=== PATIENT | female | born 1965 | race Caucasian/White ===

== ENCOUNTER 2018-01-26 15:17 | Observation (INO) ==
--- NOTE | 2018-01-26 15:41 | ED ---
HPI General Chief complaint: Medical Clearance Stated complaint: Cardiac Time Seen by Provider: 01/26/18 15:34 Source: patient, EMS and other Mode of arrival: EMS Limitations: no limitations History of Present Illness HPI narrative: Patient is a 53-year-old female, past medical history significant for reflux, breast cancer, who presents to the emergency department after having a lumpectomy. Patient states that she has been feeling well and took her Zantac prior to the procedure today. She slept through most of this procedure and is complaining of pain near the lumpectomy site but otherwise feels well. Per EMS report during the patient's procedure she had 2 5-second strips of asystole on the monitor that self aborted. These rhythm strips were not brought with the patient. The only medication she received there per report was morphine. Onset (ago): unknown Radiation: non-radiation Relieving factors: none Exacerbating factors: none Treatments prior to arrival: Reports none Related Data Home Medications Medication Instructions Recorded Confirmed ranitidine HCl [Zantac Maximum 150 mg PO DAILY 01/26/18 01/26/18 Strength] Allergies Allergy/AdvReac Type Severity Reaction Status Date / Time No Known Allergies Allergy Unverified 01/26/18 15:34 Review of Systems ROS: all other systems reviewed are negative [facility] Medical History Medical History GERD (gastroesophageal reflux disease) (Acute) Social History Social History Second Hand Smoke Exposure: No Smoking Status: Former smoker Tobacco Type: Cigarettes How Often Do You Have a Drink Containing Alcohol: Monthly or less Recent Travel in [facility] within the Last 8 Weeks: No Recent Out of Country Travel within the Last 8 Weeks: No Immunization History Tetanus Immunization: Unsure Exam Narrative Exam Narrative: GENERAL: Well-appearing female in no acute distress SKIN: Focused skin assessment warm/dry. No rashes. HEAD: Atraumatic. Normocephalic. EYES: Pupils equal and round. No scleral icterus. No injection or drainage. ENT: No nasal bleeding or discharge. Mucous membranes pink and moist. NECK: Trachea midline. No JVD. CARDIOVASCULAR: Regular rate and rhythm. No murmur appreciated. Intact and equal peripheral pulses. RESPIRATORY: No accessory muscle use. Clear to auscultation. Breath sounds equal bilaterally. GASTROINTESTINAL: Abdomen soft, non-tender, nondistended. Hepatic and splenic margins not palpable. MUSCULOSKELETAL: No obvious deformities. No clubbing. No cyanosis. No edema. NEUROLOGICAL: Awake and alert. No obvious cranial nerve deficits. Motor grossly within normal limits. Normal sensation. No ataxia. Normal speech. PSYCHIATRIC: Appropriate mood and affect; insight and judgment normal. Course Initial Documented Vital Signs Temperature 98.9 F 01/26/18 15: Pulse Rate 82 01/26/18 15: Respiratory Rate 18 01/26/18 15: Blood Pressure 109/66 01/26/18 15: Pulse Oximetry 97 01/26/18 15: Last Documented Vital Signs Temperature 98.9 F 01/26/18: Pulse Rate 62 01/26/18 19:00 Respiratory Rate 18 01/26/18 19: Blood Pressure 110/62 01/26/18 19:00 Pulse Oximetry 97 01/26/18 19:00 Medical Decision Making MDM Narrative Medical decision making narrative: Patient is a 53-year-old female who presents with complaint of dysrhythmia while she was undergoing a sedation. EKG shows NSR, no ST elevation or depression, and no arrhythmias. No significant T-wave inversions. Here is sinus rhythm and labs are unremarkable. She has not had any asystole on the monitor while in the emergency department. She has been admitted to Dr. Preston, hospitalist on-call, for further evaluation and management. Medical Screen Exam Complete: Yes Emergency Medical Condition: Yes Differential Diagnosis Differential Diagnosis: Differential diagnosis includes but is not limited to electrolyte abnormality, dysrhythmia, monitor error. Medical Records Medical records reviewed: Yes I reviewed the patient's medical records. Lab Data Result diagrams: 01/26/18 15:38 01/26/18 15:38 Lab Results 01/26/18 01/26/18 Range/Units 15:38 15:38 WBC 10.8 (4.0-11.0) th/mm3 RBC 4.52 (4.00-5.30) mil/mm3 Hgb 13.3 (11.6-15.3) gm/dL Hct 39.4 (35.0-46.0) % MCV 87.2 (80.0-100.0) fL MCH 29.3 (27.0-34.0) pg MCHC 33.6 (32.0-36.0) % RDW 15.2 (11.6-17.2) % Plt Count 211 (150-450) th/mm3 MPV 8.0 (7.0-11.0) fL Sodium 139 (136-145) meq/L Potassium 4.0 (3.5-5.1) meq/L Chloride 108 H (98-107) meq/L Carbon Dioxide 22.6 (21.0-32.0) meq/L Anion Gap 8 (5-15) meq/L BUN 10 (7-18) mg/dL Creatinine 0.90 (0.50-1.00) mg/dL Estimated GFR 65 L (>89) mL/min Random Glucose 91 (74-106) mg/dL Calcium 8.2 L (8.5-10.1) mg/dL Total Bilirubin 0.5 (0.2-1.0) mg/dL AST 25 (15-37) U/L ALT 23 (10-53) U/L Alkaline Phosphatase 74 (45-117) U/L Troponin I Less than 0.02 L (0.02-0.05) ng/mL Total Protein 7.6 (6.4-8.2) g/dL Albumin 3.4 (3.4-5.0) g/dL TSH 5.240 H (0.358-3.740) uIU/mL Imaging Data Radiologist's impression: Chest X-Ray 01/26/18 15:34 CONCLUSION: No acute cardiopulmonary disease. There are gas bubbles in the right chest wall and breast area most likely postsurgical changes. ECG Data EKG Prior to Arrival: No Attestation: I personally reviewed and interpreted this ECG as follows: Discharge Plan Discharge Disposition Patient Disposition: 30 Still Patient Discharge Condition Condition: Stable Discharge Details Diagnosis: Cardiac dysrhythmia Physicians Team ED Provider: Bhumika Sinclair Primary Care Provider: Ursula Holt Rxs /Orders / Referrals /Forms Prescriptions: No Action ranitidine HCl [Zantac Maximum Strength] 150 mg Tablet 150 mg PO DAILY RF: 0 Discharge Interventions Interventions: Vital Signs Last Done: 01/26/18 19:00 Status ED Status: With Doctor
[2018-01-26] MEDS ORDERED: Sod Chloride 0.9% Inj 1,000 ML IV.SIG SCH (15:45)
[2018-01-26 16:27] LABS: Hematocrit 39.4 % (35.0-46.0); Hemoglobin 13.3 gm/dL (11.6-15.3); Mean Corpuscular HGB Conc 33.6 % (32.0-36.0); Mean Corpuscular Hemoglobin 29.3 pg (27.0-34.0); Mean Corpuscular Volume 87.2 fL (80.0-100.0); Platelet Count 211 th/mm3 (150-450); Red Blood Count 4.52 mil/mm3 (4.00-5.30); Red Cell Distribution Width 15.2 % (11.6-17.2); White Blood Count 10.8 th/mm3 (4.0-11.0)
--- NOTE | 2018-01-26 16:41 | XR ---
EXAM DATE: 01/26/2018 3:34 PM EDT AGE/SEX: 53 years / Female INDICATIONS: . Asystole twice during lumpectomy today. CLINICAL DATA: This is the patient's initial encounter. Patient reports that signs and symptoms have been present for 1 day and indicates a pain score of 0/10. MEDICAL/SURGICAL HISTORY: Carcinoma, breast. . Lumpectomy, right. COMPARISON: . FINDINGS: The lungs are clear without infiltrate, nodule, or mass. There is no appreciable pleural effusion for technique. Heart and mediastinum are unremarkable. There are gas bubbles in the patien t's right breast area partially dissecting into the right upper chest most likely postsurgical change s. No definite pneumothorax is seen for technique. CONCLUSION: No acute cardiopulmonary disease. There are gas bubbles in the right chest wall and love st area most likely postsurgical changes. Electronically signed by: Tj Holm MD 01/26/2018 4:40 PM EDT
[2018-01-26 16:50] LABS: Albumin 3.4 g/dL (3.4-5.0); Anion Gap 8 meq/L (5-15); Aspartate Aminotransferase 25 U/L (15-37); Blood Urea Nitrogen 10 mg/dL (7-18); Calcium 8.2 mg/dL (8.5-10.1); Carbon Dioxide 22.6 meq/L (21.0-32.0); Chloride 108 meq/L (98-107); Glomerular Filtration Rate 65 mL/min (>89); Glucose,Random 91 mg/dL (74-106); Sodium 139 meq/L (136-145)
[2018-01-26 16:59] LABS: Alanine Aminotransferase 23 U/L (10-53); Alkaline Phosphatase 74 U/L (45-117); Total Protein 7.6 g/dL (6.4-8.2)
[2018-01-26] MEDS ORDERED: Bisacodyl 10 MG Supp RECTAL PRN (19:05)
--- NOTE | 2018-01-26 19:13 | P.HP ---
History of Present Illness Service: CP hospitalist Primary Care Physician: BENNIE Bucio Chief Complaint: sent by Dr. Ledesma asystole History of Present Illness: HPI narrative: Patient is a 53-year-old female, past medical history significant for reflux,RT breast cancer, who presents to the emergency department after having a lumpectomy. Patient states that she has been feeling well and took her Zantac prior to the procedure today. She slept through most of this procedure and is complaining of pain near the lumpectomy site but otherwise feels well. Per EMS report during the patient's procedure she had 2 5 -second strips of asystole on the monitor that self aborted. These rhythm strips were not brought with the patient. The only medication she received there per report was morphine. OR report 2 episodes bradycardia with 5 second asystole. Will admit to observation. 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 - Medical History Medical History: Medical History (Last Reviewed 01/26/18 @ 19:10 by Canelo Gonzalez MD) GERD (gastroesophageal reflux disease) - Tobacco History Second Hand Smoke Exposure: No Tobacco Use In Past 30 Days: No Smoking Status: Former smoker Tobacco Type: Cigarettes - Alcohol History How Often Do You Have a Drink Containing Alcohol: Monthly or less - Travel History Recent Travel in the [place] Within the Last 8 Weeks: No Recent Travel Out of the Country Within the Last 8 Weeks: No - Immunization History Tetanus Immunization: Unsure Medications and Allergies Active Medications: Active Medications Sodium Chloride (Ns Inj) 1,000 mls @ 0 mls/hr IV.SIG BOLUS GLORY Non-Formulary Medication (Ranitidine Hcl [Zantac Maximum Strength]) 150 mg PO DAILY GLORY Sodium Chloride (Ns Flush) 2 ml IV.FLUSH PRN PRN PRN Reason: FLUSH AFTER USING IV ACCESS Allergies Allergy/AdvReac Type Severity Reaction Status Date / Time No Known Allergies Allergy Unverified 01/26/18 15:34 Home Medications Medication Instructions Recorded Confirmed Type ranitidine HCl [Zantac Maximum 150 mg PO DAILY 01/26/18 01/26/18 History Strength] Exam Vital signs: Vital Signs 01/26/18 15:26 01/26/18 16:15 01/26/18 16:16 Temperature 98.9 F Pulse Rate 82 88 Respiratory Rate 18 17 Blood Pressure 109/66 110/56 L Pulse Oximetry 97 98 98 01/26/18 17:40 01/26/18 19:00 Temperature Pulse Rate 86 62 Respiratory Rate 18 18 Blood Pressure 107/67 110/62 Pulse Oximetry 98 97 Intake & Output 01/26/18 01/26/18 01/27/18 06:59 18:59 06:59 Weight 70.76 kg Narrative: GENERAL: SKIN: Warm and dry. HEAD: Atraumatic. Normocephalic. EYES: Pupils equal and round. No scleral icterus. No injection or drainage. ENT: No nasal bleeding or discharge. Mucous membranes pink and moist. NECK: Trachea midline. No JVD. CARDIOVASCULAR: Regular rate and rhythm. RESPIRATORY: No accessory muscle use. Clear to auscultation. Breath sounds equal bilaterally. GASTROINTESTINAL: Abdomen soft, non-tender, nondistended. Hepatic and splenic margins not palpable. MUSCULOSKELETAL: Extremities without clubbing, cyanosis, or edema. No obvious deformities. NEUROLOGICAL: Awake and alert. No obvious cranial nerve deficits. Motor grossly within normal limits. Five out of 5 muscle strength in the arms and legs. Normal speech. PSYCHIATRIC: Appropriate mood and affect; insight and judgment normal. Results - Labs CBC & Chem 7: 01/26/18 15:38 01/26/18 15:38 Labs: Laboratory Results - last 24 hr 01/26/18 01/26/18 15:38 15:38 WBC 10.8 RBC 4.52 Hgb 13.3 Hct 39.4 MCV 87.2 MCH 29.3 MCHC 33.6 RDW 15.2 Plt Count 211 MPV 8.0 Sodium 139 Potassium 4.0 Chloride 108 H Carbon Dioxide 22.6 Anion Gap 8 BUN 10 Creatinine 0.90 Estimated GFR 65 L Random Glucose 91 Calcium 8.2 L Total Bilirubin 0.5 AST 25 ALT 23 Alkaline Phosphatase 74 Troponin I Less than 0.02 L Total Protein 7.6 Albumin 3.4 TSH 5.240 H - Imaging Impressions Chest X-Ray 01/26/18 15:34 CONCLUSION: No acute cardiopulmonary disease. There are gas bubbles in the right chest wall and breast area most likely postsurgical changes. Caprini VTE Risk Assessment Caprini VTE Risk Assessment: No/Low Risk (score <= 1) Caprini Risk Assessment Model: Point Value = 1 Point Value = 2 Point Value = 3 Point Value = 5 Age 41-60 Minor surgery BMI > 25 kg/m2 Swollen legs Varicose veins or History of unexplained or recurrent spontaneous Oral contraceptives or hormone replacement Sepsis (< 1 month) Serious lung disease, including pneumonia (< 1 month) Abnormal pulmonary function Acute myocardial infarction Congestive heart failure (< 1 month) History of inflammatory bowel disease Medical patient at bed rest Age 61-74 Arthroscopic surgery Major open surgery (> 45 min) Laparoscopic surgery (> 45 min) Malignancy Confined to bed (> 72 hours) Immobilizing plaster cast Central venous access Age >= 75 History of VTE Family history of VTE Factor V Leiden Prothrombin [id number] Lupus anticoagulant Anticardiolipin antibodies Elevated serum homocysteine Heparin-induced thrombocytopenia Other congenital or acquired thrombophilia Stroke (< 1 month) Elective arthroplasty Hip, pelvis, or leg fracture Acute spinal cord injury (< 1 month) Prophylaxis Regimen: Total Risk Factor Score Risk Level Prophylaxis Regimen 0-1 Low Early ambulation 2 Moderate Order ONE of the following: *Sequential Compression Device (SCD) *Heparin 5000 units SQ BID 3-4 Higher Order ONE of the following medications: *Heparin 5000 units SQ TID *Enoxaparin/Lovenox 40 mg SQ daily (WT < 150 kg, CrCl > 30 mL/min) *Enoxaparin/Lovenox 30 mg SQ daily (WT < 150 kg, CrCl > 10-29 mL/min) *Enoxaparin/Lovenox 30 mg SQ BID (WT < 150 kg, CrCl > 30 mL/min) AND/OR *Sequential Compression Device (SCD) 5 or more Highest Order ONE of the following medications: *Heparin 5000 units SQ TID (Preferred with Epidurals) *Enoxaparin/Lovenox 40 mg SQ daily (WT < 150 kg, CrCl > 30 mL/min) *Enoxaparin/Lovenox 30 mg SQ daily (WT < 150 kg, CrCl > 10-29 mL/min) *Enoxaparin/Lovenox 30 mg SQ BID (WT < 150 kg, CrCl > 30 mL/min) AND *Sequential Compression Device (SCD) Assessment and Plan - Assessment (1) Asystole Code(s): I46.9 - Cardiac arrest, cause unspecified Status: Acute Plan: bradycardia with episode asystole admit to observation monitor may have been vasovagal or anesthesia response - Plan further plan pending monitor review Code Status: full Discussed Condition With: patient
[2018-01-26] MEDS: Senna/Docusate Sodium 8.6/50 MG Tablet PO SCH (20:35)
[2018-01-26 21:05] VITALS: RESP 16
[2018-01-26 21:12] LABS: Bacteria,Urine Rare /hpf; Bilirubin,Urine Negative (Negative); Clarity,Urine Hazy (Clear); Color,Urine Red (Yellw/Straw); Glucose,Urine (UA) Negative (Negative); Leukocyte Esterase,Urine Small (Negative); Nitrite,Urine Negative (Negative); Specific Gravity,Urine 1.005 (1.002-1.035); Squamous Epithelial Cell,Urine 5 /hpf (0-5)
--- NOTE | 2018-01-27 08:34 | P.PNIM ---
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 The exam, history, and the medical decision-making described in the above note were completed with the assistance of the mid-level provider. I reviewed and agree with the findings presented. I attest that I had a [id number] encounter with the patient on the same day, and personally performed and documented my assessment and findings in the medical record. PT left AMA before I saw her. Physical Exam Vital signs: Vital Signs 01/26/18 15:26 01/26/18 16:15 01/26/18 16:16 Temperature 98.9 F Pulse Rate 82 88 Respiratory Rate 18 17 Blood Pressure 109/66 110/56 L Pulse Oximetry 97 98 98 01/26/18 17:40 01/26/18 19:00 01/26/18 20:00 Temperature 98.0 F Pulse Rate 86 62 62 Respiratory Rate 18 18 16 Blood Pressure 107/67 110/62 113/64 Pulse Oximetry 98 97 99 01/26/18 20:50 01/27/18 00:00 01/27/18 04:00 Temperature 98.4 F 97.8 F Pulse Rate 89 61 58 L Respiratory Rate 16 16 16 Blood Pressure 105/61 90/54 L 102/55 L Pulse Oximetry 97 96 97 Intake & Output 01/26/18 01/27/18 01/27/18 18:59 06:59 18:59 Weight 70.76 kg 70.76 kg Other: Date of Last Bowel Movement 01/26/18 Weight On Admission 70.76 kg Narrative: GENERAL: NAD, AAOx3 SKIN: Warm and dry. Right breast incisions are well approximated with steri strips in place. CARDIO: Regular, emili. RESP: No accessory muscle use. Clear to auscultation. Breath sounds equal bilaterally. ABD: +BS, soft, non-tender, nondistended. EXT: Extremities without clubbing, cyanosis, or edema. Results - Labs CBC & Chem 7: 01/26/18 15:38 01/26/18 15:38 Laboratory Results - last 24 hr 01/26/18 01/26/18 01/26/18 15:38 15:38 18:50 WBC 10.8 RBC 4.52 Hgb 13.3 Hct 39.4 MCV 87.2 MCH 29.3 MCHC 33.6 RDW 15.2 Plt Count 211 MPV 8.0 Sodium 139 Potassium 4.0 Chloride 108 H Carbon Dioxide 22.6 Anion Gap 8 BUN 10 Creatinine 0.90 Estimated GFR 65 L Random Glucose 91 Calcium 8.2 L Total Bilirubin 0.5 AST 25 ALT 23 Alkaline Phosphatase 74 Troponin I Less than 0.02 L Total Protein 7.6 Albumin 3.4 TSH 5.240 H Urine Color Red Urine Clarity Hazy H Urine pH 7.0 Ur Specific [place]lin 1.005 Urine Protein 30 H Urine Glucose (UA) Negative Urine Ketones Negative Urine Occult Blood Large H Urine Nitrate Negative Urine Bilirubin Negative Urine Urobilinogen Less than 2 Ur Leukocyte Esterase Small H Urine RBC 18 H Urine WBC 15 H Ur Squamous Epith Cells 5 Urine Bacteria Rare H Micro UA Comment Culture indicated Ur Microscopic Review Not Reportable Urine Culture Comments Culture indicated - Imaging Impressions Chest X-Ray 01/26/18 15:34 CONCLUSION: No acute cardiopulmonary disease. There are gas bubbles in the right chest wall and breast area most likely postsurgical changes. Assessment and Plan - Assessment (1) Cardiac dysrhythmia Code(s): I49.9 - Cardiac arrhythmia, unspecified Status: Acute Plan: Cardiac dysrhythmia Bradycardia, sinus Episodes of asystole - Pt is a 53 y/o female newly diagnosed with infiltrating ductal carcinoma breast cancer who was undergoing lumpectomy on 01/26/[address] Ham. Pt was brought to the ED after she had 2 reported episodes of 5 second asystole during the procedure. Pt without any previous hx of cardiac dysrhythmias - Pt has been on telemetry since admission with noted sinus bradycardia, HR in the 40-50's - Review of outpt records note that her HR have been noted to typically be in the high 50-70's during office visits to her PCP. - Pts TSH was elevated at 5.240 - Check free T4 - Review of outpt labs on 01/04/18 noted TSH 3.50/Free T4 0.08 - Holter Monitor - Pt is to ambulate today and see what her HR does when up and moving - Supportive care Breast Cancer - Pt newly diagnosed with infiltrating ductal carcinoma breast cancer who was underwent lumpectomy on 01/26/[address] Ham - Pt will need to followup with an Oncologist as an outpt for continued management GERD - Cont. H2 sonia ADDENDUM: - Pt left AMA without being seen by Dr. Preston on 01/27/18. - She refused the Holter monitor and the Echo (2) Breast cancer Code(s): C50.919 - Malignant neoplasm of unspecified site of unspecified female breast Status: Acute (3) GERD (gastroesophageal reflux disease) Code(s): K21.9 - Gastro-esophageal reflux disease without esophagitis Status: Acute (1) Cardiac dysrhythmia Qualifiers: Arrhythmia type: unspecified cardiac arrhythmia Qualified Code(s): I49.9 - Cardiac arrhythmia, unspecified
[2018-01-27] MEDS ORDERED: Famotidine 20 MG Tablet PO SCH (09:00)
[2018-01-27] MEDS: Senna/Docusate Sodium 8.6/50 MG Tablet PO SCH (10:33)
[2018-01-27 12:19] VITALS: BP 101/60; PULSE 56; TEMP 98.5; O2SAT 100
--- NOTE | 2018-01-27 13:19 | ECG ---
Date Performed: 01/26/2018 Time Performed: 15:29:22 PTAGE: 53 years EKG: Sinus rhythm NORMAL ECG NO PREVIOUS TRACING DOCTOR: Katrin Espinoza Interpretating Date/Time 01/27/2018 13:13:07
== END 2018-01-27 12:54 | disposition left against medical advice (07) ==
LOC: NEDA 15:17 → NEPE 15:17 → NEPFCDU 21:01
PROVIDERS: ADMIT Hospitalist; ATTEND Hospitalist